=== PATIENT | male | born 1975 | race Caucasian/White ===

== ENCOUNTER 2016-08-01 14:55 | Emergency (ER) | payer BC ==
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
== END 2016-08-01 18:07 | disposition home or self-care (01) ==
LOC: ER 14:55
DX: S42.021A Displaced fracture of shaft of right clavicle, initial encounter for closed fracture (principal); W31.89XA Contact with other specified machinery, initial encounter
CPT/HCPCS: 99283